=== PATIENT | male | born 1990 | race Two or more races ===

== ENCOUNTER 2017-01-25 13:48 | Emergency (ER) | payer BC ==
[~2017-01-25] VITALS: Ht 185.4 cm; Wt 104.3 kg
[2017-01-25 13:55] VITALS: BP 157/99
--- NOTE | 2017-01-25 14:42 | PHYS DOC ---
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 Patient was using a cable denies dropping weights or hitting his back directly. He is described as sharp and is rated moderate to severe. It is worse with palpation and neck movement. Denies history of chronic back pain. Review of Systems Review of Systems Review symptoms as per history of present illness. All other review symptoms are negative. Current Medications Current Medications Current Medications Medications (Trade) Dose Ordered Sig/Farzana Start Time Stop Time Status Last Admin Dose Admin Morphine Sulfate (Morphine 10mg Syringe) 10 mg 1X ONCE 01/25/17 14:45 01/25/17 14:46 UNV Ondansetron HCl (Zofran Odt) 4 mg 1X ONCE 01/25/17 14:45 01/25/17 14:46 UNV Allergies Allergies Allergies Coded Allergies Type Severity Reaction Last Updated Verified No Known Drug Allergies 01/25/17 No Physical Exam Physical Exam Constitutional: Well developed, well nourished, no acute distress, non-toxic appearance. [] HENT: Normocephalic, atraumatic, bilateral external ears normal, oropharynx moist, no oral exudates, nose normal. [] Eyes: PERRLA, EOMI, conjunctiva normal, no discharge. [] Neck: Limited lateral rotation secondary to pain, no tenderness, supple, no stridor. [] Cardiovascular:Heart rate regular rhythm, no murmur [] Lungs & Thorax: Bilateral breath sounds clear to auscultation [] Abdomen: Bowel sounds normal, soft, no tenderness, no masses, no pulsatile masses. [] Skin: Warm, dry, no erythema, no rash. [] Back: No lung pain, left lower thoracic, paravertebral pain, tenderness. Limited lateral rotation secondary to pain[] Extremities: No tenderness, no cyanosis, no clubbing, ROM intact, no edema. [] Neurologic: Alert and oriented X 3, normal motor function, normal sensory function, no focal deficits noted. [] Psychologic: Affect normal, judgement normal, mood normal. [] Current Patient Data Vital Signs Vital Signs Date Time Temp Pulse Resp B/P (MAP) Pulse Ox O2 Delivery O2 Flow Rate FiO2 01/25/17 13:55 98.3 85 100 Room Air EKG EKG [] Radiology/Procedures Radiology/Procedures [X-ray- Thoracic series: No acute bony injury per radiology report.] Course & Med Decision Making Course & Med Decision Making Pertinent Labs and Imaging studies reviewed. (See chart for details) [Mechanical back strain. No bony findings on radiology report. Supportive care recommended with PCP follow-up.] Dragon Disclaimer Dragon Disclaimer This chart was dictated in whole or in part using Voice Recognition software in a busy, high-work load, and often noisy Emergency Department environment. It may contain unintended and wholly unrecognized errors or omissions. Departure Departure: Impression: Primary Impression: Thoracic back sprain Disposition: 01 HOME, SELF-CARE Condition: GOOD Patient Instructions: Back Pain, Adult, [id number] Additional Instructions: Please rest back avoid strenuous physical activity. Take ibuprofen for pain and EARLE RIGGS DO Jan 25, 2017 14:42
[2017-01-25] MEDS ORDERED: ONDANSETRON ODT 4 MG TAB.RAPDIS PO ONE (14:45)
[2017-01-25] MEDS ORDERED: MORPHINE SULFATE 10 MG/ML SYRINGE. IM ONE (14:45)
--- NOTE | 2017-01-25 15:14 | RAD ---
Indication back pain. AP and lateral views of the thoracic spine were obtained. Swimmer's views were also obtained. No bony abnormality is seen
== END 2017-01-25 15:55 | disposition home or self-care (01) ==
LOC: ER 13:48
DX: S23.3XXA Sprain of ligaments of thoracic spine, initial encounter (principal); I10 Essential (primary) hypertension; F41.9 Anxiety disorder, unspecified; X50.9XXA Other and unspecified overexertion or strenuous movements or postures, initial encounter; Y93.89 Activity, other specified; Y99.8 Other external cause status; Y92.89 Other specified places as the place of occurrence of the external cause
CPT/HCPCS: 72072; 96372; 99284; J2270; Q0162

== ENCOUNTER 2018-10-31 11:57 | Emergency (ER) | payer BC ==
[~2018-10-31] VITALS: Ht 185.4 cm; Wt 98.5 kg
[2018-10-31 12:07] VITALS: BP 142/86
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
== END 2018-10-31 12:54 | disposition home or self-care (01) ==
LOC: ER 11:57
DX: S60.221A Contusion of right hand, initial encounter (principal); S80.01XA Contusion of right knee, initial encounter; F41.9 Anxiety disorder, unspecified; I10 Essential (primary) hypertension; Z88.5 Allergy status to narcotic agent; Y08.89XA Assault by other specified means, initial encounter; Y93.89 Activity, other specified; Y92.89 Other specified places as the place of occurrence of the external cause; Y99.8 Other external cause status
CPT/HCPCS: 73130; 73562; 99284

== ENCOUNTER → 2019-07-03 | Outpatient (CLI) | payer BC ==
[2019-07-03 12:04] LABS: ALBUMIN 4.1 g/dL (3.4-5.0); ALBUMIN/GLOBULIN RATIO 1.4 (1.0-1.7); CALCIUM 8.6 mg/dL (8.5-10.1); CREATININE 1.2 mg/dL (0.7-1.3); GFR 70.6; POTASSIUM 4.3 mmol/L (3.5-5.1); TOTAL BILIRUBIN 0.5 mg/dL (0.2-1.0); TOTAL PROTEIN 7.1 g/dL (6.4-8.2)
[2019-07-03 12:12] LABS: BASO % 0 % (0-3); EOS % 1 % (0-3); HEMATOCRIT 41.6 % (39.0-53.0); HEMOGLOBIN 13.9 g/dL (13.0-17.5); LYMPH # 1.1 x10^3/uL (1.0-4.8); LYMPH % 24 % (24-48); MEAN CORPUSCULAR HEMOGLOBIN 31 pg (25-35); MEAN CORPUSCULAR HGB CONC 34 g/dL (31-37); MEAN CORPUSCULAR VOLUME 94 fL (79-100); MONO # 0.6 x10^3/uL (0.0-1.1); MONO % 12 % (0-9); NEUT # 2.9 x10^3uL (1.8-7.7); NEUT % 62 % (31-73); PLATELET COUNT 165 x10^3/uL (140-400); RED BLOOD COUNT 4.44 x10^6/uL (4.30-5.70); RED CELL DISTRIBUTION WIDTH 12.9 % (11.5-14.5); WHITE BLOOD COUNT 4.7 x10^3/uL (4.0-11.0)
[2019-07-03 12:51] LABS: BACTERIA,URINE 0 /HPF (0-FEW); BILIRUBIN,URINE NEG (NEG); CLARITY,URINE CLEAR; COLOR,URINE YELLOW; GLUCOSE,URINE NEG (NEG); NITRITE,URINE NEG (NEG); SQUAMOUS EPITHELIAL CELL,UR FEW /LPF; UROBILINOGEN,URINE 0.2 mg/dL (0.2 mg/dL); WBC,URINE OCC /HPF (0-4)
== END | disposition home or self-care (01) ==
LOC: LAB 10:56
PROVIDERS: ATTEND Family Medicine
DX: Z13.1 Encounter for screening for diabetes mellitus (principal); Z13.220 Encounter for screening for lipoid disorders; I10 Essential (primary) hypertension
CPT/HCPCS: 36415; 80053; 80061; 81001; 85025

== ENCOUNTER 2020-06-18 15:18 | Emergency (ER) | payer BC, OTHER ==
[~2020-06-18] VITALS: Ht 185.4 cm; Wt 111.4 kg
[2020-06-18 15:39] VITALS: BP 136/66
[2020-06-18] MEDS ORDERED: CYCL-331 PO (15:45)
--- NOTE | 2020-06-18 15:45 | PHYS DOC ---
Past History Past Medical History: Anxiety, Hypertension, Other Past Surgical History: No Surgical History Alcohol Use: None Drug Use: None General Adult EDM: Chief Complaint: BACK PAIN OR INJURY HPI: HPI: Patient is a 30-year-old male who presents with lower back pain that radiates down into his right leg. Patient states that he was at work today he missed 2 stairs and landed on his feet at the bottom of the stairs. Patient denies taking anything for the pain. Denies changes in bowel or bladder. Patient denies any health history. Review of Systems: Review of Systems: Constitutional: Denies fever or chills Eyes: Denies change in visual acuity HENT: Denies nasal congestion or sore throat Respiratory: Denies cough or shortness of breath Cardiovascular: Denies chest pain or edema GI: Denies abdominal pain, nausea, vomiting, bloody stools or diarrhea : Denies dysuria Musculoskeletal: Lower back pain that radiates down right leg Integument: Denies rash Neurologic: Denies headache, focal weakness or sensory changes Endocrine: Denies polyuria or polydipsia Lymphatic: Denies swollen glands Psychiatric: Denies depression or anxiety Allergies: Allergies: Allergies Coded Allergies Type Severity Reaction Last Updated Verified morphine Allergy Unknown 10/31/18 Yes Physical Exam: PE: Constitutional: Well developed, well nourished, no acute distress, non-toxic appearance. [] HENT: Normocephalic, atraumatic, bilateral external ears normal, oropharynx moist, no oral exudates, nose normal. [] Eyes: PERRLA, EOMI, conjunctiva normal, no discharge. [] Neck: Normal range of motion, no tenderness, supple, no stridor. [] Cardiovascular:Heart rate regular rhythm, no murmur [] Lungs & Thorax: Bilateral breath sounds clear to auscultation [] Abdomen: Bowel sounds normal, soft, no tenderness, no masses, no pulsatile masses. [] Skin: Warm, dry, no erythema, no rash. [] Back: No tenderness, no CVA tenderness. [] Extremities: No tenderness, no cyanosis, no clubbing, ROM intact, no edema. [] Neurologic: Alert and oriented X 3, normal motor function, normal sensory function, no focal deficits noted. [] Psychologic: Affect normal, judgement normal, mood normal. [] EKG: EKG: [] Radiology/Procedures: Radiology/Procedures: [] Heart Score: Risk Factors: Risk Factors: DM, Current or recent (<one month) smoker, HTN, HLP, family history of CAD, obesity. Risk Scores: Score 0 - 3: 2.5% MACE over next 6 weeks - Discharge Home Score 4 - 6: 20.3% MACE over next 6 weeks - Admit for Clinical Observation Score 7 - 10: 72.7% MACE over next 6 weeks - Early Invasive Strategies Course & Med Decision Making: Course & Med Decision Making Pertinent Labs and Imaging studies reviewed. (See chart for details) []Patient is a 30-year-old male who presents with lower back pain that radiates down into his right leg. Patient states that he was at work today he missed 2 stairs and landed on his feet at the bottom of the stairs. Patient denies taking anything for the pain. Denies changes in bowel or bladder. Patient denies any health history. Patient given IM Toradol, Flexeril for sciatica. Did patient to take ibuprofen at home for discomfort. I also prescribed Flexeril for him to take at home. Instructed patient to return to the emergency room with any worsening symptoms or concerns. If patient continues to have symptoms he needs to follow-up with his PCP. Dragon Disclaimer: Dragon Disclaimer: This electronic medical record was generated, in whole or in part, using a voice recognition dictation system. Departure Departure: Impression: Primary Impression: Sciatica of right side Disposition: 01 DC HOME SELF CARE/HOMELESS Condition: STABLE Referrals: AGUSTÍN MAY MD (PCP) Patient Instructions: Sciatica, [id number] Additional Instructions: You are seen in the emergency room today for lower back pain. You were given Toradol and Flexeril for sciatica. You can take ibuprofen at home for discomfort. I also prescribed Flexeril for him to take at home. Instructed patient to return to the emergency room with any worsening symptoms or concerns. If patient continues to have symptoms he needs to follow-up with his PCP. Scripts Cyclobenzaprine Hcl (CYCLOBENZAPRINE HCL) 10 Mg Tablet 1 TAB PO TID for SCIATICA, #15 TAB Prov: DENISE BUSCH APRN 06/18/20 DENISE BUSCH APRN Jun 18, 2020 15:45
[2020-06-18] MEDS ORDERED: CYCLOBENZAPRINE 10 MG TABLET. PO ONE (16:00)
[2020-06-18] MEDS ORDERED: KETOROLAC 60 MG/2 ML VIAL. IM ONE (16:00)
== END 2020-06-18 16:01 | disposition home or self-care (01) ==
LOC: ER 15:18
DX: M54.41 Lumbago with sciatica, right side (principal); F41.9 Anxiety disorder, unspecified; I10 Essential (primary) hypertension; Z88.5 Allergy status to narcotic agent
CPT/HCPCS: 99283

== ENCOUNTER 2020-08-04 08:33 | Emergency (ER) | payer BC, OTHER ==
[~2020-08-04] VITALS: Ht 185.4 cm; Wt 118.5 kg
[2020-08-04 08:33] VITALS: BP 124/65
[~2020-08-04 08:33] MED LIST: CYCL-331 PO
[2020-08-04] MEDS ORDERED: LIDOCAINE 2% PF 5 ML VIAL. INJ ONE (09:00)
[2020-08-04] MEDS ORDERED: IBUPROFEN 600 MG TABLET. PO ONE (09:00)
[2020-08-04] MEDS ORDERED: LIDOCAINE 2% 20 ML VIAL. INJ ONE (09:00)
--- NOTE | 2020-08-04 09:08 | RAD ---
XR HAND_RIGHT 3 VIEWS History: Reason: crush inj / Spl. Instructions: / History: Technique: 3 views right hand Comparison: November 01, 2018 Findings: Normal alignment. No fracture. Impression: 1. No acute osseous abnormality. Electronically signed by: Christopher Mckenna DO (08/04/2020 9:05 AM) [id number]
--- NOTE | 2020-08-04 10:45 | PHYS DOC ---
Past History Past Medical History: Anxiety, Hypertension, Other Past Surgical History: No Surgical History Alcohol Use: None Drug Use: None Adult General Chief Complaint Chief Complaint: LACERATION/AVULSION HPI HPI Patient is a 30m with possible history of anxiety hypertension who presents emergency department after an injury to the right index finger. Patient states that he was getting a cabinet when a close grabbing to our on the right index finger. Noted a large laceration to the area. Since that time is that he is having increasing difficulty flexing the finger at the DIP joint. Denies any additional injury. Denies any prior injury to the area. Review of Systems Review of Systems Constitutional: Denies fever or chills [] Eyes: Denies change in visual acuity, redness, or eye pain [] HENT: Denies nasal congestion or sore throat [] Respiratory: Denies cough or shortness of breath [] Cardiovascular: No additional information not addressed in HPI [] GI: Denies abdominal pain, nausea, vomiting, bloody stools or diarrhea [] : Denies dysuria or hematuria [] Musculoskeletal: Denies back pain or joint pain [] Integument: Denies rash or skin lesions [] Neurologic: Denies headache, focal weakness or sensory changes [] Endocrine: Denies polyuria or polydipsia [] All other systems were reviewed and found to be within normal limits, except as documented in this note. Current Medications Current Medications Current Medications Medications (Trade) Dose Ordered Sig/[facility] Start Time Stop Time Status Last Admin Dose Admin Ibuprofen (Motrin) 600 mg 1X ONCE 08/04/20 09:00 08/04/20 09:01 DC 08/04/20 09:00 600 MG Lidocaine HCl 5 ml 1X ONCE 08/04/20 09:00 08/04/20 09:01 DC 08/04/20 09:00 5 ML Lidocaine HCl (Lidocaine Pf 2% Vial) 5 ml 1X ONCE 08/04/20 09:00 08/04/20 08:54 DC Allergies Allergies Allergies Coded Allergies Type Severity Reaction Last Updated Verified morphine Allergy Unknown 10/31/18 Yes Physical Exam Physical Exam Constitutional: Well developed, well nourished, no acute distress, non-toxic appearance. [] HENT: Normocephalic, atraumatic, bilateral external ears normal, oropharynx moist, no oral exudates, nose normal. [] Eyes: PERRLA, EOMI, conjunctiva normal, no discharge. [] Neck: Normal range of motion, no tenderness, supple, no stridor. [] Cardiovascular:Heart rate regular rhythm, no murmur [] Lungs & Thorax: Bilateral breath sounds clear to auscultation [] Abdomen: Bowel sounds normal, soft, no tenderness, no masses, no pulsatile masses. [] Skin: Warm, dry, no erythema, no rash. 2 cm laceration on dorsal surface of the DIP joint of the right index finger with apparent tendon involvement and expose d bone Back: No tenderness, no CVA tenderness. [] Extremities: No tenderness, no cyanosis, no clubbing, ROM intact, no edema. [] Neurologic: Alert and oriented X 3, normal motor function, normal sensory function, no focal deficits noted. [] Psychologic: Affect normal, judgement normal, mood normal. [] Current Patient Data Vital Signs Vital Signs Date Time Temp Pulse Resp B/P (MAP) Pulse Ox O2 Delivery O2 Flow Rate FiO2 08/04/ 08:33 98.0 72 16 124/65 (84) 99 Room Air EKG EKG [] Radiology/Procedures Radiology/Procedures [] Heart Score C/O Chest Pain: No Risk Factors: Risk Factors: DM, Current or recent (<one month) smoker, HTN, HLP, family history of CAD, obesity. Risk Scores: Risk Factors: DM, Current or recent (<one month) smoker, HTN, HLP, family history of CAD, obesity. Course & Med Decision Making Course & Med Decision Making Pertinent Labs and Imaging studies reviewed. (See chart for details) 30-year-old male presenting the emergency department significant laceration of the right index finger. There is concern for deep tendon or joint involvement based on the depth of the laceration and the patient's inability to actively flex the finger at the DIP joint. I discussed the case with Dr Dixon at [facility] is recommending holding sutures and discharged with a splint and orthopedic follow-up Dragon Disclaimer Dragon Disclaimer This electronic medical record was generated, in whole or in part, using a voice recognition dictation system. Departure Departure: Referrals: AGUSTÍN MAY MD (PCP) Laceration Repair Lac Repair Indication: Right index finger laceration Procedure: The patient was placed in the appropriate position and anesthesia around the right index finger DIP laceration was completed with 3 cc of lidocaine without epinephrine. The area was then copiously irrigated. The laceration was closed using 3 separate 3-0 nylon sutures in a simple interrupted fashion. The wound area was then dressed with [a clean sterile dressing and placed in a splint Total repaired wound length: 2 cm. Other Items: The patient tolerated the procedure well. Complications: None. CLARICE BEJARANO MD Aug 04, 2020 10:45
== END 2020-08-04 10:50 | disposition home or self-care (01) ==
LOC: ER 08:33
DX: S61.210A Laceration without foreign body of right index finger without damage to nail, initial encounter (principal); F41.9 Anxiety disorder, unspecified; I10 Essential (primary) hypertension; Z88.6 Allergy status to analgesic agent; Y29.XXXA Contact with blunt object, undetermined intent, initial encounter; Y93.89 Activity, other specified; Y92.89 Other specified places as the place of occurrence of the external cause; Y99.8 Other external cause status
CPT/HCPCS: 12001; 73130; 99283; J2001

== ENCOUNTER 2020-09-23 16:15 | Emergency (ER) | payer BC, OTHER ==
[~2020-09-23] VITALS: Ht 185.4 cm; Wt 118.5 kg
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
== END 2020-09-23 17:09 | disposition home or self-care (01) ==
LOC: ER 16:15
DX: S50.02XA Contusion of left elbow, initial encounter (principal); I10 Essential (primary) hypertension; X58.XXXA Exposure to other specified factors, initial encounter; Y93.89 Activity, other specified; Y92.89 Other specified places as the place of occurrence of the external cause; Y99.8 Other external cause status
CPT/HCPCS: 73080; 99283-25

== ENCOUNTER 2020-11-17 21:06 | Emergency (ER) | payer BC, OTHER ==
[~2020-11-17] VITALS: Ht 185.4 cm; Wt 106.4 kg
--- NOTE | 2020-11-17 21:09 | PHYS DOC ---
Past History Past Medical History: Anxiety, Hypertension, Other Additional Past Medical Histor: ADHD Past Surgical History: No Surgical History Alcohol Use: None Drug Use: None General Adult HPI: HPI: " I got this flank pain or Lt chest pain..."..."''I was boxing ... and felt a pop.. on my Lt chest.. and it been hurting ever since..." Patient is a 30 year old male who presents with above hx and complaints of left flank and chest wall pain. Pain is primary located along anterior axillary line at approximately T7 level. Patient states any movement, deep breaths or coughing exacerbates the pain. No recent travel. No specific ill contacts. Normally healthy. Up-to-date with vaccinations. Review of Systems: Review of Systems: Constitutional: Denies fever or chills Eyes: Denies change in visual acuity HENT: Denies nasal congestion or sore throat Respiratory: Denies cough or shortness of breath Cardiovascular: Denies chest pain or edema GI: Denies abdominal pain, nausea, vomiting, bloody stools or diarrhea : Denies dysuria Musculoskeletal: Denies back pain or joint pain Integument: Denies rash Neurologic: Denies headache, focal weakness or sensory changes Endocrine: Denies polyuria or polydipsia Lymphatic: Denies swollen glands Psychiatric: Denies depression or anxiety Family History: Family History: Noncontributory to presentation Current Medications: Current Meds: See nurse for home meds Allergies: Allergies: Allergies Coded Allergies Type Severity Reaction Last Updated Verified morphine Allergy Unknown 10/31/18 Yes Physical Exam: PE: Constitutional: Well developed, well nourished, moderate acute distress, non- toxic appearance. [] HENT: Normocephalic, atraumatic, bilateral external ears normal, oropharynx moist, no oral exudates, nose normal. [] Eyes: PERRLA, EOMI, conjunctiva normal, no discharge. [] Neck: Normal range of motion, no tenderness, supple, no stridor. [] Cardiovascular:Heart rate regular rhythm, no murmur []. Be monitor shows a sinus rhythm with no acute morphology Lungs & Thorax: Bilateral breath sounds equal apex on auscultation [] left chest wall pain as per HPI Abdomen: Bowel sounds normal, soft, no tenderness, no masses, no pulsatile masses. [] Skin: Warm, dry, no erythema, no rash. Tattoos Back: No tenderness, no CVA tenderness. [] Extremities: No tenderness, no cyanosis, no clubbing, ROM intact, no edema. [] No cording. Neurologic: Alert and oriented X 3, normal motor function, normal sensory function, no focal deficits noted. [] Psychologic: Affect normal, judgement normal, mood normal. [] EKG: EKG: [] Radiology/Procedures: Radiology/Procedures: [][address] [address] IMAGING REPORT Signed PATIENT: HAIM FOLEYCOUNT: [id number] : 1990 LOCATION: ER AGE: 30 SEX: M EXAM STATUS: REG ER ORD. PHYSICIAN: LIZZETTE BURGOS MD REASON: boxing Lt. flank pain PROCEDURE: CT CHEST WO CONTRAST Exam: CT of chest without contrast INDICATION: Left flank pain TECHNIQUE: Sequential axial images through the chest obtained without IV contrast. Sagittal and coronal reformatted images were reconstructed from the axial data and reviewed. Exposure: One or more of the following in the visualized dose reduction techn iques were utilized for this examination: 1. Automated exposure control 2. Adjustment of the MA and/or KV according to patient size 3. Use of iterative of reconstructive technique Comparisons: None FINDINGS: Visualized portions of the thyroid are unremarkable. No enlarged mediastinal lymph nodes are identified. Heart size is normal. No pericardial effusion. Thoracic aorta has a normal course and caliber. Pulmonary artery is not enlarged Airways are patent. No consolidation or pneumothorax. No suspicious lung nodules. No pleural effusion or thickening. Visualized upper abdomen is unremarkable. No suspicious osseous lesions or acute fractures. IMPRESSION: No acute process identified within the chest. Electronically signed by: Issa Hunt MD (11/17/2020 10:10 PM) [facility] DICTATED AND SIGNED BY: ISSA HUNT MD DATE: 11/17/202205 CC: LIZZETTE BURGOS MD; AGUSTÍN MAY MD ~MTH0 0 Heart Score: C/O Chest Pain: Yes HEART Score for Chest Pain: HEART Score for Chest Pain Response (Comments) Value Age < 45 0 Risk Factors No Risk Factors 0 Total 0 Risk Factors: Risk Factors: DM, Current or recent (<one month) smoker, HTN, HLP, family history of CAD, obesity. Risk Scores: Score 0 - 3: 2.5% MACE over next 6 weeks - Discharge Home Score 4 - 6: 20.3% MACE over next 6 weeks - Admit for Clinical Observation Score 7 - 10: 72.7% MACE over next 6 weeks - Early Invasive Strategies Course & Med Decision Making: Course & Med Decision Making Pertinent Labs and Imaging studies reviewed. (See chart for details) Patient use ice pack as needed. Take Tylenol and ibuprofen for pain. Follow-up primary care. Marked paint take Vicoprofen up 4 x day. Impression: 1. Lt. Chest Wall pain-cartilage injury. [] Dragon Disclaimer: Dragon Disclaimer: This electronic medical record was generated, in whole or in part, using a voice recognition dictation system. Departure Departure: Referrals: AGUSTÍN MAY MD (PCP) Scripts Hydrocodone/Ibuprofen (HYDROCODONE-IBUPROFEN 7.5-200 ) 1 Each Tablet 1 TAB PO PRN Q6HRS PRN for PAIN, #30 TAB 0 Refills Prov: LIZZETTE BURGOS MD 11/17/20 Kilo Disclaimer This chart was dictated in whole or in part using Voice Recognition software in a busy, high-work load, and often noisy Emergency Department environment. It may contain unintended and wholly unrecognized errors or omissions. LIZZETTE BURGOS MD Nov 17, 2020 21:09
[2020-11-17] MEDS ORDERED: KETOROLAC 60 MG/2 ML VIAL. IM ONE (21:30)
--- NOTE | 2020-11-17 22:13 | RAD ---
Exam: CT of chest without contrast INDICATION: Left flank pain TECHNIQUE: Sequential axial images through the chest obtained without IV contrast. Sagittal and coron al reformatted images were reconstructed from the axial data and reviewed. Exposure: One or more of the following in the visualized dose reduction techniques were utilized for this examination: 1. Automated exposure control 2. Adjustment of the MA and/or KV according to patient size 3. Use of iterative of reconstructive technique Comparisons: None FINDINGS: Visualized portions of the thyroid are unremarkable. No enlarged mediastinal lymph nodes are identifi ed. Heart size is normal. No pericardial effusion. Thoracic aorta has a normal course and caliber. Pulmon marlyn artery is not enlarged Airways are patent. No consolidation or pneumothorax. No suspicious lung nodules. No pleural effusion or thickening. Visualized upper abdomen is unremarkable. No suspicious osseous lesions or acute fractures. IMPRESSION: No acute process identified within the chest. Electronically signed by: Issa Mayer MD (11/17/2020 10:10 PM) [facility]
[2020-11-17 22:17] LABS: BACTERIA,URINE 0 /HPF (0-FEW); BILIRUBIN,URINE NEG (NEG); CLARITY,URINE CLOUDY; COLOR,URINE YELLOW; GLUCOSE,URINE NEG (NEG); NITRITE,URINE NEG (NEG); RBC,URINE OCC /HPF (0-2); UROBILINOGEN,URINE 0.2 mg/dL (0.2 mg/dL); WBC,URINE OCC /HPF (0-4)
[2020-11-17 22:18] LABS: AMORPHOUS SEDIMENT,UR PRESENT /HPF
[2020-11-17] MEDS ORDERED: HYDR-1179 PO (23:37)
[2020-11-18 00:25] VITALS: BP 151/86
[2020-11-18] MEDS ORDERED: HYDROcodon/IBUPROFEN 7.5/200MG 1 TAB TABLET ONE (00:28)
[2020-11-18] MEDS ORDERED: HYDROcodon/IBUPROFEN 7.5/200MG 1 TAB TABLET PO ONE (00:30)
--- NOTE | 2020-11-18 00:43 | RAD ---
Chest, PA and Lateral: Technique: PA and lateral views of the chest were obtained. History: Injury. Comparison: None. Findings: The heart and pulmonary vasculature appear within normal limits. The lungs are clear. The pleural ma rgins are clear. Impression: No acute chest process is seen. Electronically signed by: Daniel Tate MD (11/18/2020 12:40 AM) [id number]
== END 2020-11-18 00:30 | disposition home or self-care (01) ==
LOC: ER 21:06
DX: S29.9XXA Unspecified injury of thorax, initial encounter (principal); F41.9 Anxiety disorder, unspecified; I10 Essential (primary) hypertension; Z88.5 Allergy status to narcotic agent; X50.9XXA Other and unspecified overexertion or strenuous movements or postures, initial encounter; Y93.89 Activity, other specified; Y92.89 Other specified places as the place of occurrence of the external cause; Y99.8 Other external cause status
CPT/HCPCS: 71046; 71250; 81001; 96372; 99285; J1885